=== PATIENT | female | born 1995 | race Caucasian/White ===

== ENCOUNTER 2016-07-23 09:41 | Emergency (ER) | payer BC ==
[~2016-07-23] VITALS: Ht 165.1 cm; Wt 70.5 kg
[2016-07-23 09:41] VITALS: TEMP 98.2
[~2016-07-23 09:41] MED LIST: DOXYCYCLINE 10100 MG PO; PREDNISONE20 MG PO; TUSS PO; VYVANSE60 MG PO
[2016-07-23] MEDS ORDERED: LINZESS145CAP (10:10)
[2016-07-23] MEDS ORDERED: DYNACIN50 M1 PO (10:11)
[2016-07-23] MEDS ORDERED: ALDACTONE50 MG PO (10:11)
[2016-07-23 10:43] LABS: BASO % 0.3 % (0.0-2.0); EOS # 0.1 (0.0-0.7); EOS % 0.5 % (0-4.0); GRAN # 7.9 (1.4-6.5); GRAN % 77.4 % (42.2-75.2); HEMATOCRIT 46.3 % (35.0-45.0); HEMOGLOBIN 15.5 g/dl (12.0-15.0); LYMPH # 1.5 (1.2-3.4); LYMPH % 14.9 % (20.0-51.0); MEAN CELL VOLUME 93 fl (80.0-95.0); MEAN CORPUSCULAR HEMOGLOBIN 31 pg (26.0-32.0); MEAN CORPUSCULAR HGB CONC 34 g/dl (33.0-37.0); MEAN PLATELET VOLUME 10.1 fl (7.4-10.4); MONO # 0.7 (0.1-0.6); MONO % 6.6 % (1.7-9.3); PLATELET COUNT 270 K/mm3 (130-400); RED BLOOD COUNT 4.99 M/mm3 (4.10-5.30); REDCELL DISTRIBUTION WIDTH-CV 12.9 % (11.5-14.5); WHITE BLOOD COUNT 10.2 K/mm3 (4.8-10.8)
[2016-07-23 11:11] LABS: ADJUSTED CALCIUM 9.4 mg/dL (8.4-10.2); ALANINE AMINOTRANSFERASE 22 U/L (9-52); ALBUMIN 4.4 gm/dL (3.5-5.0); ALKALINE PHOSPHATASE 69 U/L (50-136); ANION GAP 12 mmol/L (7-16); BILIRUBIN,TOTAL 0.5 mg/dL (0.0-1.0); BLOOD UREA NITROGEN 8 mg/dL (7-17); CALCIUM 9.7 mg/dL (8.4-10.2); CARBON DIOXIDE 26 mmol/L (22-30); CHLORIDE 103 mmol/L (98-107); CREATININE, serum 0.63 mg/dL (0.52-1.25); GLUCOSE 88 mg/dL (74-106); SODIUM 142 mmol/L (137-145); TOTAL PROTEIN 7.1 gm/dL (6.4-8.2)
[2016-07-23 11:15] LABS: C-REACTIVE PROTEIN < 0.5 mg/dL (0.0-0.9)
[2016-07-23] MEDS ORDERED: MAGCITRATE PO (11:58)
[2016-07-23 12:14] VITALS: BP 109/7; PULSE 64
== END 2016-07-23 12:15 | disposition home or self-care (01) ==
LOC: COL.ER 09:41
PROVIDERS: Physician Assistant
DX: K59.09 Other constipation (principal)

== ENCOUNTER 2021-01-08 10:58 | Emergency (ER) | payer BC ==
[~2021-01-08] VITALS: Ht 165.1 cm; Wt 81.8 kg
[~2021-01-08 10:58] MED LIST changes: +ALDACTONE50 MG PO; +DYNACIN50 M1 PO; +LINZESS145CAP; +MAGCITRATE PO
[2021-01-08 11:04] VITALS: TEMP 98.4
[2021-01-08 11:43] LABS: BASO % 0.8 % (0.0-2.0); EOS # 0.1 K/mm3 (0.0-0.7); EOS % 1.3 % (0-4.0); GRAN # 2.9 K/mm3 (1.4-6.5); GRAN % 55.5 % (42.2-75.2); HEMATOCRIT 44.6 % (37.0-47.0); LYMPH # 1.6 K/mm3 (1.2-3.4); LYMPH % 30.7 % (20.0-51.0); MEAN CELL VOLUME 96 fl (80.0-100.0); MEAN CORPUSCULAR HEMOGLOBIN 32 pg (27.0-31.0); MEAN CORPUSCULAR HGB CONC 34 g/dl (33.0-37.0); MEAN PLATELET VOLUME 9.2 fl (7.4-10.4); MONO # 0.6 K/mm3 (0.1-0.6); MONO % 11.3 % (1.7-9.3); PLATELET COUNT 276 K/mm3 (130-400); RED BLOOD COUNT 4.66 M/mm3 (4.10-5.30); REDCELL DISTRIBUTION WIDTH-CV 11.9 % (11.5-14.5)
[2021-01-08 11:57] LABS: PROTHROMBIN TIME 11.4 SECONDS (9.7-12.8)
[2021-01-08 12:12] LABS: ERYTHROCYTE SEDIMENTATION RATE 7 mm/hr (0-20)
[2021-01-08 13:18] VITALS: BP 123/80; PULSE 80
== END 2021-01-08 13:19 | disposition home or self-care (01) ==
LOC: COL.ER 10:58
PROVIDERS: Physician Assistant
DX: R20.2 Paresthesia of skin (principal); D68.2 Hereditary deficiency of other clotting factors; D66 Hereditary factor VIII deficiency; F90.9 Attention-deficit hyperactivity disorder, unspecified type; F17.200 Nicotine dependence, unspecified, uncomplicated; Z79.899 Other long term (current) drug therapy